=== PATIENT | female | born 1970 | race Caucasian/White ===

== ENCOUNTER 2025-06-24 13:01 | Emergency (ER) | payer MEDICAID ==
[~2025-06-24] VITALS: Ht 157.5 cm; Wt 54.0 kg
[2025-06-24 13:05] VITALS: BP 120/80; O2SAT 98
[2025-06-24 13:06] VITALS: PULSE 78; RESP 16; O2SAT 99
== END 2025-06-24 16:43 | disposition left against medical advice (07) ==
LOC: ER 13:01
DX: H92.01 Otalgia, right ear (principal); Z53.21 Procedure and treatment not carried out due to patient leaving prior to being seen by health care provider